=== PATIENT | female | born 1960 | race Caucasian/White ===

== ENCOUNTER → 2020-11-21 | Day surgery (SDC) | payer BC ==
[2020-11-21 09:24] VITALS: BP 140/84; PULSE 102; RESP 16; TEMP 97.8
== END ==
LOC: RADMAMWWP 09:06
PROVIDERS: ATTEND Family Medicine
DX: Z53.9 Procedure and treatment not carried out, unspecified reason (principal)

== ENCOUNTER → 2020-12-10 | Day surgery (SDC) | payer BC ==
[2020-12-10 07:27] VITALS: RESP 16
[2020-12-10 08:54] VITALS: BP 137/77; PULSE 88; TEMP 98.4
--- NOTE | 2020-12-11 13:54 | MM ---
Stereotactic Mammotome core biopsy left breast. HISTORY: R92.8 Abn mammo The nodular density in question within the left breast were targeted by the undersigned. Procedure w as performed by the undersigned. Informed consent was obtained and all of the patients questions were answered. The standard sterile technique was utilized and appropriate local anesthesia was obtained with 1% lidocaine. Mammotome probe was advanced and multiple core samples were obtained and sent to pathology for interpretation. Microclip marker was deployed at the site of biopsy. Post procedural mammogram demonstrates appropriate deployment of radiopaque clip marker. The patient tolerated the procedure well and left the department in stable condition. Pathology results are pending. IMPRESSION: Successful stereotactic core biopsy left breast with pathology results pending.
== END ==
LOC: RADMAMWWP 07:15
PROVIDERS: ATTEND Family Medicine
DX: N60.12 Diffuse cystic mastopathy of left breast (principal); N60.82 Other benign mammary dysplasias of left breast; R92.1 Mammographic calcification found on diagnostic imaging of breast; R92.8 Other abnormal and inconclusive findings on diagnostic imaging of breast; Z91.030 Bee allergy status
CPT/HCPCS: 88305; 19081; J2001; A4648

== ENCOUNTER → 2023-08-26 | Outpatient (CLI) | payer OTHER ==
--- NOTE | 2023-08-26 10:18 | MM ---
Reason for Exam: Additional evaluation requested from prior study. Last mammogram was performed 3 year(s) and 0 month(s) ago. Patient History: Menarche at age 14. Patient has no children. Postmenopausal. 12/10/2020, Benign Core Biopsy on the left side. Risk Values: Elvia 5 year model risk: 1.8%. NCI Lifetime model risk: 8.2%. Prior Study Comparison: 03/10/2017 Bilateral MG 3D screening mammo w/cad, [facility]. 09/14/2020 Bilateral MG 3D screening mammo w/cad, [facility]. 09/21/2020 Left Diagnostic Mammogram, [facility]. Tissue Density: The breast tissue is heterogeneously dense. This may lower the sensitivity of mammography. Findings: Analyzed By CAD. Chronic nodularity seen bilaterally. There is a new indeterminate group of microcalcifications upper inner right breast approximately 5 cm from the. Tissue diagnosis is recommended. Overall Assessment: Suspicious, BI-RAD 4 Management: Stereotactic Core Biopsy of the right breast. . Results were given to the patient verbally at the time of exam. Patient should continue monthly self-breast exams. A clinical breast exam by your physician is recommended on an annual basis. This exam should not preclude additional follow-up of suspicious palpable abnormalities. Note on Elvia scores and lifetime risk: 1. A Elvia score greater than 3% is considered moderate risk. If this is the case, consider specialist referral to assess eligibility for a risk reducing agent. 2. If overall lifetime risk for the development of breast cancer is 20% or higher, the patient may qualify for future screening with alternating mammogram and breast MRI. Electronically signed and approved by: Tera Brown M.D. Radiologis
== END | disposition home or self-care (01) ==
LOC: RADMAMWWP 08:45
PROVIDERS: ATTEND Family Medicine
DX: R92.8 Other abnormal and inconclusive findings on diagnostic imaging of breast (principal); Z78.0 Asymptomatic menopausal state
CPT/HCPCS: 77062; 77066

== ENCOUNTER → 2023-10-02 | Outpatient (CLI) | payer OTHER ==
--- NOTE | 2023-10-02 08:14 | P.GSHP ---
History of Present Illness H&P Date: 10/02/23 Chief Complaint: abnormal right breast mammogram Debby is a 62 year old white female seen in consultation for Dr. Coppola regarding a mammographic abnormality in her right breast. The mammogram and [id number] which revealed an area of concern in the right breast. No lesions of concern were noted in the left breast. Her last mammogram was in 2019. She underwent a stereotactic core biopsy of the left breast in 2020 which revealed fibrocystic changes. The patient does not feel any lumps masses or nodules of concern in either breast. She has not had any recent trauma or infection in her breast. She is not complaining of any pain in her breast. She is not complaining of any nipple discharge or skin changes. She was told she had right breast cancer in 2010 in [place], she had an invasive resection percutaneously and then they realized that it was not a cancer. She did not have any radiation, she did not have any chemotherapy, she did not have any hormone therapy. Her records from [place] are not available today. She also had a right breast cyst drained in the past. He has not had any surgical procedures on either breast. Caffiene: 2 cups coffee and day iced tea daily nicotine: < 1PPD since 16 chocolate: occasional BCP: never used hormones: none Family History: no cancer Hormonal history: Menarche: 12 G1M1 adopted 1 menopause: 51 Surgical history: knee endometriosis bunyon gallbladder Medical History: HTN GERD high cholesterol Social History: nicotine: < 1PPD alcohol: none drugs: none - Constitutional Constitutional: Denies chills, Denies fever - EENT Eyes: denies blurred vision, denies pain Ears: deny: decreased hearing, tinnitus Ears, nose, mouth and throat: Denies headache, Denies sore throat - Breasts Breasts: bilateral: as per HPI - Cardiovascular Cardiovascular: Denies chest pain, Denies shortness of breath - Respiratory Respiratory: Denies cough, Denies 7 - Gastrointestinal Gastrointestinal: Denies abdominal pain, Denies diarrhea, Denies nausea, Denies vomiting - Genitourinary (Female) Genitourinary: Denies dysuria, Denies hematuria - Menstruation Menstruation: Reports postmenopausal - Musculoskeletal Comment: fibromyalgia - Integumentary Integumentary: Denies pruritus, Denies rash - Neurological Neurological: Denies numbness, Denies weakness - Psychiatric Psychiatric: Denies anxiety, Denies depression - Endocrine Endocrine: Denies fatigue, Denies weight change - Hematologic/Lymphatic Comment: none - Allergic/Immunologic Allergic/Immunologic: Reports as per HPI Past Medical History Past Medical History: GERD/Reflux, Hyperlipidemia, Hypertension Additional Past Medical History / Comment(s): fibromyalgia History of Any Multi-Drug Resistant Organisms: None Reported Past Surgical History: Cholecystectomy, Orthopedic Surgery Additional Past Surgical History / Comment(s): several breast biopsies and aspiration, Right bunion surgery,left knee. Diathermy Cauterization to cervix Past Anesthesia/Blood Transfusion Reactions: No Reported Reaction Past Psychological History: No Psychological Hx Reported Smoking Status: Current every day smoker Past Alcohol Use History: Rare Past Drug Use History: None Reported - Past Family History Mother Family Medical History: Hypertension Medications and Allergies Home Medications Medication Instructions Recorded Confirmed Type Ibuprofen 800 mg PO Q8H 11/12/20 08/27/23 History Pantoprazole Sodium 20 mg PO BID 11/12/20 08/27/23 History Atorvastatin [Lipitor] 20 mg PO DAILY 08/27/23 08/27/23 History lisinopriL [Prinivil] 10 mg PO DAILY 08/27/23 08/27/23 History Allergies Allergy/AdvReac Type Severity Reaction Status Date / Time bee venom protein (honey bee) Allergy Rash/Hives Verified 08/27/23 11:08 Surgical - Exam - General no distress - Eyes normal ocular movement - Neck trachea midline - Respiratory normal respiratory effort, clear to auscultation - Cardiovascular Rhythm: regular Heart Sounds: normal: S1, S2 - Abdomen Abdomen: soft, non tender, no guarding, no rigid, no rebound - Integumentary normal turgor - Neurologic no disoriented, no combative - Musculoskeletal normal gait - Psychiatric oriented to time, oriented to person, oriented to place, speech is normal, memory intact Breast Exam: BRA: 40C Inspection: Bilateral grade 2/3 ptosis, well-healed scar inferior medial breast from prior biopsy site Palpation: Right breast: Multi-positional exam no dominant masses or nodules of concern, scar lower in her breast from prior biopsy Right axilla: No adenopathy of concern Left breast: Multi-positional exam no dominant masses or nodules of concern Left axilla: No adenopathy of concern Results Mammogram reviewed with radiology microcalcifications of concern upper inner right breast Assessment and Plan Assessment: Impression: Abnormal right breast mammogram Plan: Right breast stereotactic core biopsy Risks and benefits of procedure discussed with the patient. Risks include but are not limited to bleeding, infection, reaction to the anesthetic. If tissue acquisition is discordant or an adequate then further tissue acquisition may be necessary. Patient understands risks and benefits and wishes to proceed. CC: Dr. Coppola
--- NOTE | 2023-10-02 08:47 | P.PCN ---
Date of Procedure: 10/02/23 Preoperative Diagnosis: Mammographic abnormality right breast/microcalcifications of concern upper inner quadrant Postoperative Diagnosis: Same Procedure(s) Performed: Right breast stereotactic core biopsy Anesthesia: local Surgeon: Nikky Goodwin Pathology: other (Breast tissue with microcalcifications) Condition: stable Disposition: same day Indications for Procedure: Microcalcifications of concern right breast upper inner quadrant Operative Findings: Radiograph of specimen reveals microcalcifications of concern Description of Procedure: The patient was noted on a routine screening mammogram to have microcalcifications of concern in the right breast in the upper inner quadrant. Stereotactic core biopsy was recommended. Physical examination did not reveal any lumps masses or nodules of concern in either breast. Risk and benefits of the procedure were discussed with the patient, she understood and wished to proceed. The patient was taken to the stereotactic core biopsy room. She was positioned upright in a chair. A hotel recreational facilities manager film was obtained. The area of concern was identified in the right breast. A CC from above approach was utilized. The lesion was targeted. The breast was prepped using chlorhexidine. 20 mL of 1% lidocaine were used to anesthetize the area of concern. A 9-gauge vacuum- assisted core was taking biopsy needle was driven to the correct coordinates. A prefire film was obtained. The needle was noted to be in the correct location. The needle was fired. A posterior film was obtained of the needle was noted to be in the correct location. 13 core biopsy specimens were obtained. Radiograph of the specimen revealed that the area of concern had been removed and microcalcifications were present in the specimen. A suture marked Top-Hat clip was deployed. This was noted to be in the correct location. The patient tolerated the procedure in stable condition. Specimen was sent to pathology. The patient will follow-up with Dr. Schneider. Cc: Dr. Coppola
== END ==
LOC: WWCWWP 09:01
PROVIDERS: ATTEND Surgery
DX: C50.911 Malignant neoplasm of unspecified site of right female breast (principal); I10 Essential (primary) hypertension; K21.9 Gastro-esophageal reflux disease without esophagitis; E78.00 Pure hypercholesterolemia, unspecified; E78.5 Hyperlipidemia, unspecified; F17.200 Nicotine dependence, unspecified, uncomplicated; M79.7 Fibromyalgia; Z85.3 Personal history of malignant neoplasm of breast; Z90.49 Acquired absence of other specified parts of digestive tract; Z91.030 Bee allergy status; Z79.899 Other long term (current) drug therapy; Z79.1 Long term (current) use of non-steroidal anti-inflammatories (NSAID)

== ENCOUNTER → 2023-10-02 | Day surgery (SDC) | payer OTHER ==
--- NOTE | 2023-10-05 09:05 | MM ---
Date of Procedure: 10/02/23 Preoperative Diagnosis: Mammographic abnormality right breast/microcalcifications of concern upper inner quadrant Postoperative Diagnosis: Same Procedure(s) Performed: Right breast stereotactic core biopsy Anesthesia: local Surgeon: Nikky Goodwin Pathology: other (Breast tissue with microcalcifications) Condition: stable Disposition: same day Indications for Procedure: Microcalcifications of concern right breast upper inner quadrant Operative Findings: Radiograph of specimen reveals microcalcifications of concern Description of Procedure: The patient was noted on a routine screening mammogram to have microcalcifications of concern in the right breast in the upper inner quadrant. Stereotactic core biopsy was recommended. Physical examination did not reveal any lumps masses or nodules of concern in either breast. Risk and benefits of the procedure were discussed with the patient, she understood and wished to proceed. The patient was taken to the stereotactic core biopsy room. She was positioned upright in a chair. A assistant to the president film was obtained. The area of concern was identified in the right breast. A CC from above approach was utilized. The lesion was targeted. The breast was prepped using chlorhexidine. 20 mL of 1% lidocaine were used to anesthetize the area of concern. A 9-gauge vacuum- assisted core was taking biopsy needle was driven to the correct coordinates. A prefire film was obtained. The needle was noted to be in the correct location. The needle was fired. A posterior film was obtained of the needle was noted to be in the correct location. 13 core biopsy specimens were obtained. Radiograph of the specimen revealed that the area of concern had been removed and microcalcifications were present in the specimen. A suture marked Top-Hat clip was deployed. This was noted to be in the correct location. The patient tolerated the procedure in stable condition. Specimen was sent to pathology. The patient will follow-up with Dr. Schneider. VLADISLAV
== END | disposition home or self-care (01) ==
LOC: RADMAMWWP 07:15
PROVIDERS: ATTEND Surgery
DX: N60.21 Fibroadenosis of right breast (principal); N64.89 Other specified disorders of breast
CPT/HCPCS: 88305; 88342; 88341; 19081; A4648

== ENCOUNTER → 2023-10-15 | Outpatient (CLI) | payer OTHER ==
--- NOTE | 2023-10-15 12:06 | P.PN ---
Subjective Progress Note Date: 10/15/23 Principal diagnosis: radial scar right breast Debby is a 62-year-old white female status post stereotactic core biopsy of the right breast on [id number]. This revealed a radial scar/complex sclerosing lesion. This was reviewed with Dr. Brown from radiology and recommendation was based on the radiographic findings needle localization and excisional biopsy. The patient tolerated the procedure without difficulty. Objective - Vital Signs Vital signs: Vital Signs Temp 98.2 F 10/15/23 12:00 Pulse 70 10/15/23 12:00 Resp 17 10/15/23 12:00 BP 135/86 10/15/23 12:00 Pulse Ox 96 10/15/23 12:00 FiO2 Intake & Output 10/14/23 10/15/23 10/15/23 18:59 06:59 18:59 Weight 72.575 kg - Constitutional General appearance: Present: cooperative - EENT Eyes: Present: EOMI ENT: Present: hearing grossly normal - Neck Neck: Present: normal ROM - Respiratory Respiratory: bilateral: CTA - Cardiovascular Rhythm: regular Heart sounds: normal: S1, S2 - Integumentary Integumentary: Present: normal turgor - Musculoskeletal Musculoskeletal: Present: gait normal - Psychiatric Psychiatric: Present: A&O x's 3, appropriate affect, intact judgment & insight - Additional findings Additional findings: Right breast biopsy site clean and dry, no evidence of hematoma or infection Assessment and Plan Assessment: Impression: Previous scar and stereotactic core biopsy right breast, as was reviewed with Dr. Brown from radiology and he felt that the area should be resected Plan: Needle Localization excisional biopsy of radial scar, possible optical plastic tissue transfer CC: Dr. Coppola
[2023-10-15 12:17] VITALS: BP 135/86; PULSE 70; RESP 17; TEMP 98.2
== END ==
LOC: WWCWWP 11:26
PROVIDERS: ATTEND Surgery
DX: N64.89 Other specified disorders of breast (principal); R92.8 Other abnormal and inconclusive findings on diagnostic imaging of breast; Z91.030 Bee allergy status

== ENCOUNTER → 2023-12-10 | Outpatient (CLI) | payer OTHER ==
[2023-12-10 09:38] VITALS: BP 163/89; PULSE 84; RESP 17; TEMP 98.3
--- NOTE | 2023-12-10 09:51 | P.PN ---
Subjective Progress Note Date: 12/10/23 Principal diagnosis: Right breast radial scar/complex sclerosing lesion/microcalcifications abnormal right breast mammogram Debby is a 63 year old white female seen in consultation for Dr. Coppola regarding a mammographic abnormality in her right breast. The mammogram was done on [id number] and revealed an area of concern in the right breast. No lesions of concern were noted in the left breast. Her last mammogram had been in 2018. She underwent a stereotactic core biopsy of the left breast in 2020 which revealed fibrocystic changes. The patient did not feel any lumps masses or nodules of concern in either breast. She had not had any recent trauma or infection in her breast. She was not complaining of any pain in her breast. She was not complaining of any nipple discharge or skin changes. She was told she had right breast cancer in 2010 in [place], she had an invasive resection percutaneously and then they realized that it was not a cancer. She did not have any radiation, she did not have any chemotherapy, she did not have any hormone therapy. Her records from [place] are not available today. She also had a right breast cyst drained in the past. She has not had any open surgical procedures on either breast. Stereotactic core biopsy was performed on 10-02-2023 of the right breast. Pathology revealed radial scar/complex sclerosing lesion. This was reviewed with Dr. Mccallum from radiology and recommendation was for the patient to undergo needle localization and excisional biopsy. The patient had a vacation scheduled and wished to have the procedure delayed until December. Caffiene: 2 cups coffee and day iced tea daily nicotine: < 1PPD since 16 chocolate: occasional BCP: never used hormones: none Family History: no cancer Hormonal history: Menarche: 12 G1M1 adopted 1 menopause: 51 Surgical history: knee endometriosis bunyon gallbladder Medical History: HTN GERD high cholesterol Social History: nicotine: < 1PPD alcohol: none drugs: none - Constitutional Constitutional: Denies chills, Denies fever - EENT Eyes: denies blurred vision, denies pain Ears: deny: decreased hearing, tinnitus Ears, nose, mouth and throat: Denies headache, Denies sore throat - Breasts Breasts: bilateral: as per HPI - Cardiovascular Cardiovascular: Denies chest pain, Denies shortness of breath - Respiratory Respiratory: Denies cough - Gastrointestinal Gastrointestinal: Denies abdominal pain, Denies diarrhea, Denies nausea, Denies vomiting - Genitourinary (Female) Genitourinary: Denies dysuria, Denies hematuria - Menstruation Menstruation: Reports postmenopausal - Musculoskeletal Comment: fibromyalgia - Integumentary Integumentary: Denies pruritus, Denies rash - Neurological Neurological: Denies numbness, Denies weakness - Psychiatric Psychiatric: Denies anxiety, Denies depression - Endocrine Endocrine: Denies fatigue, Denies weight change - Hematologic/Lymphatic Comment: none - Allergic/Immunologic Allergic/Immunologic: Reports as per HPI Past Medical History Past Medical History: GERD/Reflux, Hyperlipidemia, Hypertension Additional Past Medical History / Comment(s): fibromyalgia History of Any Multi-Drug Resistant Organisms: None Reported Past Surgical History: Cholecystectomy, Orthopedic Surgery Additional Past Surgical History / Comment(s): several breast biopsies and aspiration, Right bunion surgery,left knee. Diathermy Cauterization to cervix Past Anesthesia/Blood Transfusion Reactions: No Reported Reaction Past Psychological History: No Psychological Hx Reported Smoking Status: Current every day smoker Past Alcohol Use History: Rare Past Drug Use History: None Reported - Past Family History Mother Family Medical History: Hypertension Medications and Allergies Home Medications Medication Instructions Recorded Confirmed Type Ibuprofen 800 mg PO Q8H 11/12/20 08/27/23 History Pantoprazole Sodium 20 mg PO BID 11/12/20 08/27/23 History Atorvastatin [Lipitor] 20 mg PO DAILY 08/27/23 08/27/23 History lisinopriL [Prinivil] 10 mg PO DAILY 08/27/23 08/27/23 History Allergies Allergy/AdvReac Type Severity Reaction Status Date / Time bee venom protein (honey bee) Allergy Rash/Hives Verified 08/27/23 11:08 Objective - Vital Signs Vital signs: Intake & Output 12/09/23 12/10/23 12/10/23 18:59 06:59 18:59 Weight 72.575 kg - Constitutional General appearance: Present: cooperative - EENT Eyes: Present: EOMI ENT: Present: hearing grossly normal - Neck Neck: Present: normal ROM - Respiratory Respiratory: bilateral: CTA - Cardiovascular Heart sounds: normal: S1, S2 - Integumentary Integumentary: Present: normal turgor - Musculoskeletal Musculoskeletal: Present: gait normal - Psychiatric Psychiatric: Present: A&O x's 3, appropriate affect, intact judgment & insight - Additional findings Additional findings: Breast Exam: BRA: 40C Inspection: Bilateral grade 2/3 ptosis, well-healed scar right inferior medial breast from prior biopsy site Palpation: Right breast: Multi-positional exam no dominant masses or nodules of concern, scar lower in her breast from prior biopsy Right axilla: No adenopathy of concern Left breast: Multi-positional exam no dominant masses or nodules of concern Left axilla: No adenopathy of concern Assessment and Plan Assessment: Impression: HTN GERD high cholesterol Biopsy right breast radial scar/radiology and recommended excisional biopsy Plan: Right breast needle localization lumpectomy, possible right breast oncoplastic tissue transfer clearance Dr. Coppola Risk and benefits of the procedure discussed with the patient. Risk include but are not limited to bleeding, infection, reaction to the anesthetic. If the needle were to slip it is possible that the area would not be adequately sampled and further tissue acquisition may be necessary. The patient understands and wishes to proceed. Additionally if this were to be positive and margins were to be positive it is possible that further surgery may be necessary. CC: Dr. Coppola
== END ==
LOC: WWCWWP 09:25
PROVIDERS: ATTEND Surgery
DX: R92.0 Mammographic microcalcification found on diagnostic imaging of breast (principal); N60.11 Diffuse cystic mastopathy of right breast; N64.89 Other specified disorders of breast; I10 Essential (primary) hypertension; K21.9 Gastro-esophageal reflux disease without esophagitis; E78.00 Pure hypercholesterolemia, unspecified; Z87.39 Personal history of other diseases of the musculoskeletal system and connective tissue; F17.210 Nicotine dependence, cigarettes, uncomplicated; Z91.030 Bee allergy status; Z79.899 Other long term (current) drug therapy; Z85.3 Personal history of malignant neoplasm of breast

== ENCOUNTER 2024-02-16 08:27 | Day surgery (SDC) | payer OTHER ==
--- NOTE | 2024-02-12 12:25 | P.PN ---
Subjective Progress Note Date: 02/12/24 Principal diagnosis: Right breast radial scar/complex sclerosing lesion/microcalcifications abnormal right breast mammogram Subjective Progress Note Date: 02-12-24 Principal diagnosis: Right breast radial scar/complex sclerosing lesion/microcalcifications abnormal right breast mammogram Debby is a 63 year old white female seen in consultation for Dr. Coppola regarding a mammographic abnormality in her right breast. The mammogram was done on [id number] and revealed an area of concern in the right breast. No lesions of concern were noted in the left breast. Her last mammogram had been in 2018. She underwent a stereotactic core biopsy of the left breast in 2020 which revealed fibrocystic changes. The patient did not feel any lumps masses or nodules of concern in either breast. She had not had any recent trauma or infection in her breast. She was not complaining of any pain in her breast. She was not complaining of any nipple discharge or skin changes. She was told she had right breast cancer in 2010 in [place], she had an invasive resection percutaneously and then they realized that it was not a cancer. She did not have any radiation, she did not have any chemotherapy, she did not have any hormone therapy. Her records from [place] are not available today. She also had a right breast cyst drained in the past. She has not had any open surgical procedures on either breast. Stereotactic core biopsy was performed on 10-02-2023 of the right breast. Pathology revealed radial scar/complex sclerosing lesion. This was reviewed with Dr. Mccallum from radiology and recommendation was for the patient to undergo needle localization and excisional biopsy. The patient had a vacation scheduled and wished to have the procedure delayed until December. Her radiographs have again been personally reviewed with Dr. Nuñez from radiology. He also recommends needle localization and excisional biopsy of the area of concern. The patient is concerned secondary to the cost of the proced ure. She is going to work this out with her insurance company and the hospital. Caffiene: 2 cups coffee and day iced tea daily nicotine: < 1PPD since 16 chocolate: occasional BCP: never used hormones: none Family History: no cancer Hormonal history: Menarche: 12 G1M1 adopted 1 menopause: 51 Surgical history: knee endometriosis bunyon gallbladder Medical History: HTN GERD high cholesterol Social History: nicotine: < 1PPD alcohol: none drugs: none - Constitutional Constitutional: Denies chills, Denies fever - EENT Eyes: denies blurred vision, denies pain Ears: deny: decreased hearing, tinnitus Ears, nose, mouth and throat: Denies headache, Denies sore throat - Breasts Breasts: bilateral: as per HPI - Cardiovascular Cardiovascular: Denies chest pain, Denies shortness of breath - Respiratory Respiratory: Denies cough - Gastrointestinal Gastrointestinal: Denies abdominal pain, Denies diarrhea, Denies nausea, Denies vomiting - Genitourinary (Female) Genitourinary: Denies dysuria, Denies hematuria - Menstruation Menstruation: Reports postmenopausal - Musculoskeletal Comment: fibromyalgia - Integumentary Integumentary: Denies pruritus, Denies rash - Neurological Neurological: Denies numbness, Denies weakness - Psychiatric Psychiatric: Denies anxiety, Denies depression - Endocrine Endocrine: Denies fatigue, Denies weight change - Hematologic/Lymphatic Comment: none - Allergic/Immunologic Allergic/Immunologic: Reports as per HPI Past Medical History Past Medical History: GERD/Reflux, Hyperlipidemia, Hypertension Additional Past Medical History / Comment(s): fibromyalgia History of Any Multi-Drug Resistant Organisms: None Reported Past Surgical History: Cholecystectomy, Orthopedic Surgery Additional Past Surgical History / Comment(s): several breast biopsies and aspiration, Right bunion surgery,left knee. Diathermy Cauterization to cervix Past Anesthesia/Blood Transfusion Reactions: No Reported Reaction Past Psychological History: No Psychological Hx Reported Smoking Status: Current every day smoker Past Alcohol Use History: Rare Past Drug Use History: None Reported - Past Family History Mother Family Medical History: Hypertension Medications and Allergies Home Medications Medication Instructions Recorded Confirmed Type Ibuprofen 800 mg PO Q8H 11/12/20 08/27/23 History Pantoprazole Sodium 20 mg PO BID 11/12/20 08/27/23 History Atorvastatin [Lipitor] 20 mg PO DAILY 08/27/23 08/27/23 History lisinopriL [Prinivil] 10 mg PO DAILY 08/27/23 08/27/23 History Allergies Allergy/AdvReac Type Severity Reaction Status Date / Time bee venom protein (honey bee) Allergy Rash/Hives Verified 08/27/23 11:08 Objective - Constitutional General appearance: Present: cooperative - EENT Eyes: Present: EOMI ENT: Present: hearing grossly normal - Neck Neck: Present: normal ROM - Respiratory Respiratory: bilateral: CTA - Cardiovascular Heart sounds: normal: S1, S2 - Gastrointestinal General gastrointestinal: Present: soft - Integumentary Integumentary: Present: normal turgor - Musculoskeletal Musculoskeletal: Present: gait normal - Psychiatric Psychiatric: Present: A&O x's 3, appropriate affect, intact judgment & insight - Additional findings Additional findings: Breast Exam: BRA: 40C Inspection: Bilateral grade 2/3 ptosis, well-healed scar right inferior medial breast from prior biopsy site Palpation: Right breast: Multi-positional exam no dominant masses or nodules of concern, scar lower in her breast from prior biopsy Right axilla: No adenopathy of concern Left breast: Multi-positional exam no dominant masses or nodules of concern Left axilla: No adenopathy of concern Assessment and Plan Assessment: Impression: HTN GERD high cholesterol Biopsy right breast radial scar/review with radiology and recommended excisional biopsy Plan: Right breast needle localization lumpectomy, possible right breast oncoplastic tissue transfer clearance Dr. Coppola Risk and benefits of the procedure discussed with the patient. Risk include but are not limited to bleeding, infection, reaction to the anesthetic. If the needle were to slip it is possible that the area would not be adequately sampled and further tissue acquisition may be necessary. The patient understands and wishes to proceed. Additionally if this were to be positive and margins were to be positive it is possible that further surgery may be necessary. CC: Dr. Coppola
[~2024-02-16 08:27] MED LIST: HYDROmorphone 0.5 MG/0.5 ML SYRINGE IVP PRN; MIDAZOLAM 2 MG/2 ML VIAL IV PRN; SCOPOLAMINE 1 MG/72 HR PATCH TRANSDERM ONE
[2024-02-16] MEDS: ACETAMINOPHEN TAB 500 MG TAB PO PRN (09:15)
[2024-02-16] MEDS: ALPRAZolam 0.5 MG TAB ONE (09:15)
[2024-02-16] MEDS: LACTATED RINGERS 1,000 ML IV SCH (09:20)
[2024-02-16] MEDS: LIDOCAINE 1% INJ 10MG/ML (20 ML MDV) SQ ONE ×3 (10:02→13:40)
[2024-02-16 10:05] VITALS: RESP 16
[2024-02-16] MEDS: HEPARIN SODIUM,PORCINE 5,000 UNIT/ML 1 ML VIAL SQ PRN (10:45)
[2024-02-16] MEDS: ONDANSETRON 4 MG/2 ML VIAL IVP ONE (10:45)
[2024-02-16] MEDS: DEXAMETHASONE SOD PHOSPHATE 4 MG/ML 1 ML VIAL IV ONE (10:45)
[2024-02-16] MEDS ORDERED: LIDOCAINE 1% INJ 10MG/ML (20 ML MDV) ONE (12:40)
[2024-02-16] MEDS ORDERED: PROPOFOL 10 MG/ML 20 ML VIAL IV ONE (12:40)
[2024-02-16] MEDS ORDERED: MIDAZOLAM 2 MG/2 ML VIAL ONE (12:40)
[2024-02-16] MEDS ORDERED: fentaNYL (PF) 50 MCG/ML 2 ML AMP ONE (12:40)
[2024-02-16] MEDS: LACTATED RINGERS 1,000 ML IV ONE (13:39)
--- NOTE | 2024-02-16 13:42 | P.OP ---
Date of Procedure: 02/16/24 Preoperative Diagnosis: Right breast radial scar/complex sclerosing lesion Postoperative Diagnosis: Same Procedure(s) Performed: Right breast needle localization lumpectomy, oncoplastic tissue transfer 60 cm Anesthesia: AVANIA Surgeon: Nikky Goodwin Estimated Blood Loss (ml): 10 IV fluids (ml): 700 Pathology: other (Breast tissue) Condition: stable Disposition: same day Indications for Procedure: Radial scar and core biopsy with complex sclerosing lesion, after review with radiology recommendation was for tissue resection Operative Findings: Fibrofatty breast tissue Description of Procedure: The patient is a 63-year-old female who underwent a core biopsy of an area of concern in the right breast. Pathology revealed radial scar/complex sclerosing lesion. After review with radiology the recommendation was for needle localization and resection of the area. The patient was brought first to the radiology department. Needle localization of the area of concern was performed. The patient was brought to the operative suite. Following induction of anesthesia the right breast was prepped and draped in a sterile fashion. An incision was made and carried down to the area of concern. Circumferential resection around needle was performed. Hemostasis was attained using the electrocautery device and the harmonic scalpel. The specimen was 5 x 8 cm. The specimen was painted for orientation. Radiograph of the specimen revealed the area of concern had been removed. The cavity was examined for hemostasis. After we are sure that hemostasis was attained the wound was well irrigated. Titanium clips were placed. Posteriorly dissection was onto the pectoralis muscle. A superior pillar 5 x 2 cm was formed. An inferior pillar 5 x 2 cm was formed. The pillars were brought together to close the tissue defect. Total oncoplastic tissue transfer 60 cm. After reassured that hemostasis was attained the deep tissues were closed using 3-0 Vicryl suture. The skin was closed using 4-0 Monocryl. Surgical glue was applied. The patient tolerated the procedure in stable condition. All instrument and sponge counts were correct at the end of the case.
[2024-02-16 14:22] VITALS: TEMP 97.4
[2024-02-16 15:47] VITALS: BP 121/76; PULSE 94
--- NOTE | 2024-02-23 14:29 | MM ---
Risk Values: Elvia 5 year model risk: 2.4%. NCI Lifetime model risk: 10.0%. Pathology Description: Approach: Medial to Lateral Needle Type: 5 cm Kopan Informed consent was obtained and all the patient's questions were answered. The clip in question was localized mammographically. The standard sterile technique was utilized, as well as appropriate local anesthesia with 1% Lidocaine and bicarbonate. Localization needle followed by placement of a guidewire was performed under mammographic guidance. Verification images demonstrate appropriate deployment of the guidewire. The patient tolerated the procedure well and left the department in stable condition. Specimen radiograph demonstrates the clip in question to reside within the specimen. IMPRESSION: Successful needle localization and open biopsy right breast with pathology results pending. Pathology Results: Result: Benign, Fibrocystic change. Pathology and radiology were reviewed. Findings are concordant. A. RIGHT BREAST, EXCISIONAL BIOPSY: Benign breast tissue and margins. B. RIGHT BREAST, LUMPECTOMY: Proliferative fibrocystic change with radial scar/complex sclerosing lesion with focal microcalcification, apocrine metaplasia, columnar cell change, usual ductal hyperplasia, and sclerosing adenosis (see note). All margins benign and all sections examined negative for malignancy. Notes In order to confirm the diagnosis for specimen B, immunostains are performed with appropriate controls. Smooth muscle myosin heavy chain staining on block B10 and p63 staining on block B13 each stain positive within myoepithelial cells surrounding glands associated with the radial scar, which supports the benign diagnosis. Overall Assessment: Benign Management: Diagnostic Mammogram of the right breast in 6 months. Electronically signed and approved by: Tera Brown M.D. Radiologis
== END 2024-02-16 15:48 | disposition home or self-care (01) ==
LOC: OR 08:27
PROVIDERS: ATTEND Surgery
DX: N60.11 Diffuse cystic mastopathy of right breast (principal); D24.1 Benign neoplasm of right breast; N60.21 Fibroadenosis of right breast; N60.81 Other benign mammary dysplasias of right breast; L90.5 Scar conditions and fibrosis of skin; E78.00 Pure hypercholesterolemia, unspecified; I10 Essential (primary) hypertension; K21.9 Gastro-esophageal reflux disease without esophagitis; M79.7 Fibromyalgia; F17.210 Nicotine dependence, cigarettes, uncomplicated; Z85.3 Personal history of malignant neoplasm of breast; Z91.030 Bee allergy status; Z79.899 Other long term (current) drug therapy
CPT/HCPCS: 19301; 88305; 88342; 88307; 88341; 76098; 19281; C1819; J2250; J1644; J1100; J0690; J2405; J2001; J3010; J2704

== ENCOUNTER → 2024-02-25 | Outpatient (CLI) | payer OTHER ==
--- NOTE | 2024-02-25 11:57 | P.BCPO ---
Progress Note - Text Progress Note Date: 02/25/24 Debby is status post resection right breast lumpectomy on 02-16-24. Her pathology was benign concordant. Examination: incision: clean and dry Education post op given Plan: right breast mammogram in 6 months with exam CC: Dr. Coppola
[2024-02-25 12:17] VITALS: BP 154/85; PULSE 69; RESP 16; TEMP 98
== END ==
LOC: WWCWWP 10:58
PROVIDERS: ATTEND Surgery
DX: Z85.3 Personal history of malignant neoplasm of breast (principal); Z90.11 Acquired absence of right breast and nipple; Z91.030 Bee allergy status

== ENCOUNTER → 2024-10-26 | Outpatient (CLI) | payer OTHER ==
--- NOTE | 2024-10-29 00:10 | BD ---
EXAMINATION TYPE: Axial Bone Density DATE OF EXAM: 10/26/2024 CLINICAL HISTORY: 64 years old Female. ICD-10 CODE: M85.80 OSTEOPENIA , Additional History: Height: 63" Weight: 160lbs FRAX RISK QUESTIONS: Alcohol (3 or more units per day): No Family History (Parent hip fracture): No Glucocorticoids (More than 3mos): No (Ex: prednisone, prednisolone, methylprednisolone, dexamethasone, and hydrocortisone). History of Fracture in Adulthood: No Secondary Osteoporosis: 1. Type 1 Diabetes: No 2. Hyperthyroidism: No 3. Menopause before 45: No 4. Malnutrition: No 5. Chronic liver disease: No Rheumatoid Arthritis: No Current Tobacco Use: Yes RISK FACTORS HISTORY OF: Hip Fracture (Right/Left): No Spine Fracture: No History of Wrist Fracture: No Surgery to Spine/Hip(right/left)/Wrist (right/left): No MEDICATIONS: Thyroid Medications: No Osteoporosis Medications: No EXAM MEASUREMENTS: Bone mineral densitometry was performed using the [employer]. Bone mineral density as measured about the Lumbar spine is: ----- L1-L4(G/cm2): 0.988 T Score Values are as follows: ----- L1: -0.9 ----- L2: -1.5 ----- L3: -1.5 ----- L4: -2.4 ----- L1-L4: -1.6 Z Score Values are as follows: ----- L1: 0.4 ----- L2: -0.2 ----- L3: -0.2 ----- L4: -1.2 ----- L1-L4: -0.3 Baseline @MPH Bone mineral density about the R hip (g/cm2): 0.971 Bone mineral density about the L hip (g/cm2): 1.018 T Score values are as follows: -----R Neck: -0.7 -----L Neck: -0.6 -----R Total: -0.3 -----L Total: 0.1 Z Score values are as follows: -----R Neck: 0.6 -----L Neck: 0.6 -----R Total: 0.7 -----L Total: 1.0 Baseline @MPH FRAX%s: The graph provided illustrates a 7.3% chance for a major osteoporotic fx and a 0.4% chance fo r the hips probability for fx in 10 years time. IMPRESSION: Osteopenia (T Score between -2.5 and -1). There is slightly increased risk of fracture and the patient may be considered for treatment. Re-Screen 2-5 years. NOTE: T-SCORE=SD OF THE YOUNG ADULT MEAN. [facility], , 10/29/2024 12:07 AM
== END | disposition home or self-care (01) ==
LOC: RADBDWWP 13:16
PROVIDERS: ATTEND Family Medicine
DX: M85.80 Other specified disorders of bone density and structure, unspecified site (principal)
CPT/HCPCS: 77080

== ENCOUNTER → 2025-01-17 | Outpatient (CLI) | payer BC, OTHER ==
[2025-01-17 15:42] VITALS: BP 154/89; PULSE 89; RESP 12; TEMP 98.2
--- NOTE | 2025-02-20 14:48 | P.SLEEP ---
History of Present Illness H&P Date: 01/17/25 Chief Complaint: LADY This is a 64-year-old female patient, who was referred to me for sleep apnea evaluation. I have taken care of this patient's in the past. Her had pulmonary fibrosis and he from complications of his disease few years back. The patient is currently without and she is living alone. There is a concern for this patient having obstructive sleep apnea as the patient has loud snoring and she wakes up tired and sleepy during the day and she takes an afternoon nap. She goes to bed at around 11:30 PM and she gets out of bed at 7:30 AM in the morning. She is averaging at least 6 hours of sleep. The patient is not sure if she quits breathing at night. Denies waking up choking or gasping for air. No nocturia. No sleepwalking or sleep talking. No anxiety or panic attacks. No nocturnal chest pain or shortness of breath or heartburn. No nocturnal palpitations. Her weight has remained stable over the years. She drinks 2 cups of coffee in the morning. She is sleeping on her side. She takes naps in the afternoon. She does not fall asleep while driving her car. No sleep paralysis. Hallucinations. No cataplexy. Her current [place] score is at 15. Body mass index is 27.9. The neck size is 14 inches. Her other comorbidities include hyperlipidemia and hypertension, both being treated. Review of Systems Constitutional: Reports daytime sleepiness, Reports fatigue Eyes: denies as per HPI, denies blurred vision, denies bulging eye, denies decreased vision, denies diplopia, denies discharge, denies dry eye, denies irritation, denies itching, denies pain, denies photophobia, denies loss of peripheral vision, denies loss of vision, denies tunnel vision/blind spots Ears: deny: decreased hearing, ear discharge, earache, tinnitus Ears, nose, mouth and throat: Reports as per HPI Breasts: absent: as per HPI, change in shape, gynecomastia, masses, nipple discharge, pain, skin changes, swelling Cardiovascular: Reports as per HPI Respiratory: Reports as per HPI, Reports snoring Gastrointestinal: Reports as per HPI Genitourinary: Reports as per HPI Menstruation: Reports as per HPI Musculoskeletal: Reports as per HPI Musculoskeletal: absent: ankle pain, ankle stiffness, ankle swelling, as per HPI, elbow pain, elbow stiffness, elbow swelling, foot pain, foot stiffness, foot swelling, hand pain, hand stiffness, hand swelling, hip pain, hip stiffness, hip swelling, knee pain, knee stiffness, knee swelling, shoulder pain, shoulder stiffness, shoulder swelling, wrist pain, wrist stiffness, wrist swelling Integumentary: Reports as per HPI Neurological: Reports as per HPI Psychiatric: Reports change in sleep habits, Reports hypersomnia Endocrine: Reports as per HPI, Reports fatigue Hematologic/Lymphatic: Reports as per HPI Allergic/Immunologic: Reports as per HPI Past Medical History Past Medical History: GERD/Reflux, Hyperlipidemia, Hypertension, Mitral Valve Prolapse (MVP) Additional Past Medical History / Comment(s): fibromyalgia ,chest pain in early s , History of Any Multi-Drug Resistant Organisms: None Reported Past Surgical History: Breast Surgery, Cholecystectomy, Orthopedic Surgery (Arthroscopic knee surgery) Additional Past Surgical History / Comment(s): several breast biopsies and aspiration, Right bunion surgery,left knee. Diathermy Cauterization to cervix Past Anesthesia/Blood Transfusion Reactions: No Reported Reaction Past Psychological History: No Psychological Hx Reported Smoking Status: Current every day smoker Past Alcohol Use History: Rare Additional Past Alcohol Use History / Comment(s): currently using nicotine patch 21 mg Past Drug Use History: None Reported - Past Family History Mother Family Medical History: Hypertension Medications and Allergies Home Medications Medication Instructions Recorded Confirmed Type Ibuprofen 800 mg PO Q8H 11/12/20 01/17/25 History Pantoprazole Sodium 20 mg PO BID 11/12/20 01/17/25 History lisinopriL [Prinivil] 10 mg PO DAILY 08/27/23 01/17/25 History Simvastatin 10 mg PO DAILY 02/09/24 01/17/25 History Allergies Allergy/AdvReac Type Severity Reaction Status Date / Time bee venom protein (honey bee) Allergy Rash/Hives Verified 02/25/24 11:56 Physical Exam The patient appeared well nourished and normally developed. Vital signs as documented. Patient has a body mass index of 27.9. Upper scores of 50. Head exam is unremarkable. No scleral icterus or corneal arcus noted. Neck is without jugular venous distension, thyromegaly, or carotid bruits. Carotid upstrokes are brisk bilaterally. Patient has a Mallampati class III. Lungs are clear to auscultation and percussion. Cardiac exam reveals the PMI to be normally sized and situated. Rhythm is regular. First and second heart sounds normal. No murmurs, rubs or gallops. Abdominal exam reveals normal bowel sounds, no masses, no organomegaly and no aortic enlargement. Extremities are nonedematous and both femoral and pedal pulses are normal. Examination of the skin revealed no evidence of significant rashes, suspicious appearing nevi or other concerning lesions. Neurologically, the patient is awake and alert and the patient does not have any focal neurological deficit. Cranial nerves are essentially intact. Assessment and Plan Plan: Chronic hypersomnia, [place] score of 17. Consider obstructive sleep apnea especially with his history of snoring. She does have some sleep fragmentation. She is averaging around 6 to 7 hours of sleep and she is feeling unrefreshed and tired and sleepy during the day. Requesting further investigation as she is quite concerned of sleep apnea. Hypertension Hyperlipidemia Fibromyalgia Osteoarthritis Acid reflux Mitral valve prolapse Plan Obstructive sleep apnea is likely yet my overall clinical suspicion is not high at this patient. Will proceed with screening polysomnography to evaluate for sleep apnea and make further recommendations based on the results of sleep study. Maintain regular sleep schedule Maintain good sleep hygiene measures Optimize comorbidities Will continue to follow Sleep Note - Sleep Note Sleep Note: Temperature: Pulse Rate: Respiratory Rate: Blood Pressure: SpO2: Height: Weight: BMI: Neck Circumference:
== END ==
LOC: 3 N SLEEP 14:58
PROVIDERS: ATTEND Internal Medicine Critical Care Medicine
DX: G47.33 Obstructive sleep apnea (adult) (pediatric) (principal); I10 Essential (primary) hypertension; E78.5 Hyperlipidemia, unspecified; M79.7 Fibromyalgia; M19.90 Unspecified osteoarthritis, unspecified site; K21.9 Gastro-esophageal reflux disease without esophagitis; I34.1 Nonrheumatic mitral (valve) prolapse; Z91.030 Bee allergy status; F17.200 Nicotine dependence, unspecified, uncomplicated; Z79.899 Other long term (current) drug therapy
CPT/HCPCS: 99211

== ENCOUNTER → 2025-02-24 | Outpatient (CLI) | payer BC | LOC: 3 N SLEEP 10:47 | PROVIDERS: ATTEND Internal Medicine Critical Care Medicine | DX: Z53.9 Procedure and treatment not carried out, unspecified reason (principal) ==